=== PATIENT | male | born 1930 | race Two or more races ===

== ENCOUNTER 2017-08-08 21:51 | Emergency (ER) | payer OTHER ==
[~2017-08-08] VITALS: Ht 177.8 cm; Wt 71.2 kg
[2017-08-08] MEDS ORDERED: ACETAMINOPHEN 650 MG/SUPP.RECT RC ONE ×2 (22:28→22:30)
[2017-08-08] MEDS ORDERED: IV NS 0.9% 1,000 ML BAG IV ONE ×2 (22:30→23:30)
[2017-08-08 23:00] LABS: APPEARANCE,URINE SL CLOUDY (CLEAR); BILIRUBIN,URINE NEGATIVE (NEGATIVE); BLOOD, URINE 2+ Ery/uL (NEGATIVE); COLOR,URINE YELLOW (YELLOW); KETONES,URINE NEGATIVE (NEGATIVE); LEUKOCYTE ESTERASE ,URINE NEGATIVE (NEGATIVE); NITRITE, URINE NEGATIVE (NEGATIVE); PH,URINE 5.5 (5.0-8.0); PROTEIN,URINE 3+ mg/dl (NEGATIVE); UGLUCOSE NEGATIVE (NEGATIVE); UROBILINOGEN,URINE 0.2 EU/dL (0.2)
[2017-08-08 23:01] LABS: CALCIUM, SERUM 9.3 mg/dL (8.5-10.1); CARBON DIOXIDE 25 mmol/L (21-32); CHLORIDE 108 mmol/L (98-107); CREATININE 1.6 mg/dL (0.6-1.3); GLUCOSE 182 mg/dL (74-106); POTASSIUM 4.5 mmol/L (3.5-5.1); SODIUM SERUM 143 mmol/L (136-145); UREA NITROGEN, BLOOD 23 mg/dL (7-18)
[2017-08-08 23:03] LABS: INR 1.03 (0.87-1.13)
[2017-08-08 23:07] LABS: BACTERIA,URINE Many /HPF (None Seen); SQUAMOUS EPITHELIAL CELL,UR Few /HPF (None Seen); URINE AMORPHOUS URATE Many /HPF (None Seen)
[2017-08-08 23:08] LABS: BASOPHILS % (AUTO) 0.2 % (0.0-2.0); EOSINOPHILS % (AUTO) 0.1 % (0.0-6.0)
[2017-08-08 23:13] LABS: ALANINE AMINOTRANSFERASE 29 U/L (12-78); ALBUMIN 2.7 g/dL (3.4-5.0); ALKALINE PHOSPHATASE 52 U/L (46-116); ASPARTATE AMINOTRANSFERASE 46 U/L (15-37); BILIRUBIN,DIRECT 0.3 mg/dL (0.0-0.2); BILIRUBIN,TOTAL 1.1 mg/dL (0.2-1.0); HEMATOCRIT 40 % (39-51); HEMOGLOBIN 13.2 g/dL (13.5-17.5); LIPASE 51 U/L (73-393); LYMPHOCYTES # (AUTO) 1.7 /CMM (0.8-4.8); LYMPHOCYTES % (AUTO) 8.3 % (20.0-44.0); MEAN CORPUSCULAR HGB CONC 33 g/dl (31.0-36.0); MEAN CORPUSCULAR VOLUME 96 fL (80-96); MONOCYTES % (AUTO) 4.9 % (2.0-12.0); NEUTROPHILS # (AUTO) 17.5 /CMM (1.8-8.9); NEUTROPHILS % (AUTO) 86.5 % (43.0-81.0); PLATELET COUNT (AUTO) 147 /CMM (150-450); RDW COEFFICIENT OF VARIATION 15.5 (11.5-15.0); RED BLOOD CELL COUNT(AUTO) 4.13 MIL/uL (4.5-6.0); TOTAL PROTEIN, SERUM 7.4 g/dL (6.4-8.2); WHITE BLOOD COUNT (AUTO) 20.2 K/uL (4.3-11.0)
[2017-08-08] MEDS ORDERED: PIPERACILLIN /TAZOBACTAM 3.375 G in IV D5W 50 ML IV ONE (23:30)
--- NOTE | 2017-08-08 23:35 | NUR ---
CALLED [facility], PRESENTED PT, AWAITING CALL BACK FROM FROM [facility].
[2017-08-08] MEDS ORDERED: PIPERACILLIN /TAZOBACTAM 3.375 G VIAL IV ONE (23:37)
--- NOTE | 2017-08-09 00:44 | NUR ---
Call from [facility], pt accepted to [facility] ER by Dr Eubanks. # for report [phone]. EtA [id number]
[2017-08-09 00:57] VITALS: BP 146/67
--- NOTE | 2017-08-09 01:02 | NUR ---
kika zamorano took report for kehinde at [facility] [place]
--- NOTE | 2017-08-09 01:37 | NUR ---
report given to transport team for kehinde
== END 2017-08-09 01:48 | disposition short-term general hospital (02) ==
LOC: ER 21:53
DX: J18.9 Pneumonia, unspecified organism (principal); R65.20 Severe sepsis without septic shock; N39.0 Urinary tract infection, site not specified; N17.9 Acute kidney failure, unspecified; D69.6 Thrombocytopenia, unspecified; R41.0 Disorientation, unspecified; F03.90 Unspecified dementia, unspecified severity, without behavioral disturbance, psychotic disturbance, mood disturbance, and anxiety; I10 Essential (primary) hypertension; E11.9 Type 2 diabetes mellitus without complications; Z88.8 Allergy status to other drugs, medicaments and biological substances
CPT/HCPCS: 36415; 71045-TC; 80048-TC; 80076-TC; 81000-TC; 83605-TC; 83690-TC; 84484-TC; 85025-TC; 85730-TC; 87040-TC; 87081-TC; 87086-TC; 87186-TC; A4606; J2543; J7030; J7060; Z7610